=== PATIENT | male | born 1965 | race Hispanic/Latino ===

== ENCOUNTER 2017-09-22 08:58 | Emergency (ER) | payer SELFPAY ==
[2017-09-22] MEDS ORDERED: DUONEB *Not for PRN Use IH ONE ×2 (09:09→14:47)
[2017-09-22] MEDS ORDERED: PULMICORT IH ONE (09:31)
--- NOTE | 2017-09-22 10:28 | XRay Report ---
CHEST TWO VIEWS: 09/22/17 08:58:00 CLINICAL: Shortness of breath. COMPARISON: 08/29/17 FINDINGS: Normal heart and pulmonary vasculature. The lungs are hyperexpanded and hyperlucent. No airspace disease or pleural effusion. Degenerative changes in the spine. IMPRESSION: COPD and no significant change compared to the prior exam.No CHF or pneumonia.
[2017-09-22] MEDS ORDERED: MAGNESIUM SULFATE 2GM/50ML 2 GM/50 ML BAG IV ONE (11:25)
[2017-09-22] MEDS ORDERED: PROVENTIL IH ONE (11:25)
[2017-09-22] MEDS ORDERED: ATROVENT IH ONE (11:25)
[2017-09-22] MEDS ORDERED: TORADOL IV ONE (11:26)
--- NOTE | 2017-09-22 11:28 | Emergency Department Report ---
ED General Adult HPI - General Chief complaint: Dyspnea/Respdistress Stated complaint: BRONCHITIS Time Seen by Provider: 09/22/17 11:14 Source: patient, RN notes reviewed, old records reviewed Mode of arrival: Ambulatory Limitations: No Limitations - History of Present Illness Initial comments: This is a 52-year-old male, the patient is previously evaluated by this provider. Patient has a past medical history of heart disease with stents, possible history of COPD, patient's does not recall any recent pulmonary function testing. Patient had a CT scan of the chest performed on August 29, which demonstrated "bilateral bronchiectasis with areas of reticular nodular opacity bilaterally, differential diagnoses include infective bronchiolitis, including PAYAM, tuberculosis or fungal pneumonia, bronchiolitis, or connective tissue disorders." The patient presents today with complaint of cough, wheezing, shortness of breath and mucus production. He reports that when he was seen at the end of the month last month, "I got patched up and felt better." Patient presents to the ER today with a complaint of cough, wheezing, shortness of breath. He reports his symptoms got better for a few days after being seen at the end of last month, and they have worsened. There is no leg pain. There is no leg swelling. No recent trips. No recent surgeries. Positive chest tightness with coughing. Symptoms worse with physical exertion, they decrease with rest, symptoms do not radiate anywhere. -: Gradual, days(s) Consistency: intermittent Improves with: movement, rest Associated Symptoms: cough, loss of appetite, malaise, shortness of breath, weakness - Related Data Home Medications Medication Instructions Recorded Confirmed Last Taken Albuterol Sulfate 1.25 mg IH BID PRN 08/29/17 08/29/17 Unknown Amitriptyline [Elavil] 25 mg PO QPM 08/29/17 08/29/17 Unknown Aspirin [Adult Low Dose Aspirin EC] 81 mg PO DAILY 08/29/17 08/29/17 Unknown Carvedilol [Coreg] 6.25 mg PO BID 08/29/17 08/29/17 Unknown Fluticasone/Vilanterol [Breo 1 each IH DAILY 08/29/17 08/29/17 Unknown Ellipta 100-25 Mcg INH] Gabapentin [Neurontin] 300 mg PO BID 08/29/17 08/29/17 08/29/17 HYDROcodone/APAP 5-325 [[place] 1 each PO Q8H PRN 08/29/17 08/29/17 08/29/17 5/325] Nitroglycerin [Nitrostat] 0.4 mg SL Q5M PRN MDD 1.2mg 08/29/17 08/29/17 Unknown Simvastatin [Zocor] 40 mg PO DAILY 08/29/17 08/29/17 Unknown Previous Rx's Medication Instructions Recorded Last Taken Type Carvedilol [Coreg] 6.25 mg PO BID #60 tablet 08/29/17 Unknown Rx Ciprofloxacin HCl [Ciprofloxacin 750 mg PO BID #20 tablet 08/29/17 Unknown Rx TAB] Clopidogrel [Plavix] 75 mg PO QDAY #30 tablet 08/29/17 Unknown Rx Gabapentin [Neurontin] 300 mg PO Q8HR #90 capsule 08/29/17 Unknown Rx Nebulizer and Compressor 1 each MC DAILY #1 each 08/29/17 Unknown Rx [Sootheneb Compressor Nebulizer] Nitroglycerin 0.4 mg SL Q10MIN PRN #4 tab.subl 08/29/17 Unknown Rx Pantoprazole [Protonix] 40 mg PO QDAY #30 tablet 08/29/17 Unknown Rx Simvastatin [Zocor TAB] 40 mg PO QHS #30 tablet 08/29/17 Unknown Rx Albuterol Sulfate [Albuterol 0.63% 0.63 mg IH TID PRN #1 box 09/22/17 Unknown Rx NEBS] Benzonatate [Tessalon Perles] 100 mg PO Q8HR #30 capsule 09/22/17 Unknown Rx Budesonide [Pulmicort] 0.5 mg IH Q12HR #1 box 09/22/17 Unknown Rx Ipratropium [Atrovent NEB] 0.5 mg IH Q8HRT #1 box 09/22/17 Unknown Rx Prednisone [predniSONE 10 mg 10 mg PO .TAPER #1 tab.ds.pk 09/22/17 Unknown Rx (6-Day Pack, 21 Tabs)] Allergies Allergy/AdvReac Type Severity Reaction Status Date / Time Penicillins Allergy Hives Verified 08/29/17 12:26 ED Review of Systems ROS: Stated complaint: BRONCHITIS Other details as noted in HPI Constitutional: malaise, weakness Eyes: denies: eye discharge ENT: congestion Respiratory: cough, shortness of breath, SOB with exertion, wheezing Cardiovascular: dyspnea on exertion Gastrointestinal: denies: vomiting Musculoskeletal: as per HPI Skin: as per HPI Neurological: as per HPI, weakness Psychiatric: anxiety ED Past Medical Hx - Past Medical History Hx Hypertension: Yes (10 stents) Hx Heart Attack/AMI: Yes Hx Congestive Heart Failure: No Hx Diabetes: No Hx Deep Vein Thrombosis: No Hx Pulmonary Embolism: No Hx Asthma: No Hx COPD: Yes Hx Tuberculosis: No Hx HIV: No Additional medical history: CAD, chronic pain (nerve damage) - Surgical History Hx Coronary Stent: Yes (x10) Hx Pacemaker: No Hx Internal Defibrillator: No Additional Surgical History: Hemorrhoidectomy x 2 - Social History Smoking Status: Current Every Day Smoker Substance Use Type: None - Medications Home Medications: Home Medications Medication Instructions Recorded Confirmed Last Taken Type Albuterol Sulfate 1.25 mg IH BID PRN 08/29/17 08/29/17 Unknown History Amitriptyline [Elavil] 25 mg PO QPM 08/29/17 08/29/17 Unknown History Aspirin [Adult Low Dose Aspirin EC] 81 mg PO DAILY 08/29/17 08/29/17 Unknown History Carvedilol [Coreg] 6.25 mg PO BID 08/29/17 08/29/17 Unknown History Carvedilol [Coreg] 6.25 mg PO BID #60 tablet 08/29/17 Unknown Rx Ciprofloxacin HCl [Ciprofloxacin 750 mg PO BID #20 tablet 08/29/17 Unknown Rx TAB] Clopidogrel [Plavix] 75 mg PO QDAY #30 tablet 08/29/17 Unknown Rx Fluticasone/Vilanterol [Breo 1 each IH DAILY 08/29/17 08/29/17 Unknown History Ellipta 100-25 Mcg INH] Gabapentin [Neurontin] 300 mg PO BID 08/29/17 08/29/17 08/29/17 History Gabapentin [Neurontin] 300 mg PO Q8HR #90 capsule 08/29/17 Unknown Rx HYDROcodone/APAP 5-325 [[place] 1 each PO Q8H PRN 08/29/17 08/29/17 08/29/17 History 5/325] Nebulizer and Compressor 1 each MC DAILY #1 each 08/29/17 Unknown Rx [Sootheneb Compressor Nebulizer] Nitroglycerin 0.4 mg SL Q10MIN PRN #4 tab.subl 08/29/17 Unknown Rx Nitroglycerin [Nitrostat] 0.4 mg SL Q5M PRN MDD 1.2mg 08/29/17 08/29/17 Unknown History Pantoprazole [Protonix] 40 mg PO QDAY #30 tablet 08/29/17 Unknown Rx Simvastatin [Zocor TAB] 40 mg PO QHS #30 tablet 08/29/17 Unknown Rx Simvastatin [Zocor] 40 mg PO DAILY 08/29/17 08/29/17 Unknown History Albuterol Sulfate [Albuterol 0.63% 0.63 mg IH TID PRN #1 box 09/22/17 Unknown Rx NEBS] Benzonatate [Tessalon Perles] 100 mg PO Q8HR #30 capsule 09/22/17 Unknown Rx Budesonide [Pulmicort] 0.5 mg IH Q12HR #1 box 09/22/17 Unknown Rx Ipratropium [Atrovent NEB] 0.5 mg IH Q8HRT #1 box 09/22/17 Unknown Rx Prednisone [predniSONE 10 mg 10 mg PO .TAPER #1 tab.ds.pk 09/22/17 Unknown Rx (6-Day Pack, 21 Tabs)] ED Physical Exam - General Limitations: Physical Limitation General appearance: alert, in distress - Head Head exam: Present: atraumatic, normocephalic - Eye Eye exam: Present: normal appearance, EOMI. Absent: nystagmus - ENT ENT exam: Present: normal exam, normal orophraynx, mucous membranes moist, normal external ear exam - Neck Neck exam: Present: normal inspection, full ROM - Respiratory Respiratory exam: Present: wheezes, rhonchi - Cardiovascular Cardiovascular Exam: Present: regular rate, normal rhythm, normal heart sounds. Absent: tachycardia, systolic murmur, diastolic murmur, rubs, gallop - GI/Abdominal GI/Abdominal exam: Present: soft, normal bowel sounds. Absent: distended, tenderness, guarding, rebound, rigid, pulsatile mass - Rectal Rectal exam: Present: deferred - Extremities Exam Extremities exam: Present: normal inspection, full ROM, normal capillary refill. Absent: pedal edema, joint swelling, calf tenderness - Back Exam Back exam: Present: normal inspection, full ROM. Absent: tenderness, CVA tenderness (R), paraspinal tenderness, vertebral tenderness - Neurological Exam Neurological exam: Present: alert, oriented X3, normal gait, other (Extraocular movements intact. Tongue midline. No facial droop. Facial sensation intact to light touch in the V1, V2, V3 distribution bilaterally. 5 and 5 strength in 4 extremities.. Sensation is intact to light touch in 4 extremities.). Absent : motor sensory deficit - Psychiatric Psychiatric exam: Present: anxious - Skin Skin exam: Present: warm, dry, intact, normal color. Absent: rash ED Course Vital Signs 09/22/17 09/22/17 09/22/17 09:03 09:24 09:43 Temperature 98 F Pulse Rate 91 H Pulse Rate [ 79 Anterior Bilateral Throughout] Pulse Rate [ 88 Posterior Bilateral Throughout] Respiratory 22 Rate Respiratory 20 Rate [Anterior Bilateral Throughout] Respiratory 22 Rate [Posterior Bilateral Throughout] Blood Pressure 129/89 Blood Pressure [Right] O2 Sat by Pulse 95 Oximetry 09/22/17 09/22/17 09/22/17 11:26 11:51 12:11 Temperature Pulse Rate 78 81 Pulse Rate [ 69 Anterior Bilateral Throughout] Pulse Rate [ Posterior Bilateral Throughout] Respiratory 18 18 Rate Respiratory 20 Rate [Anterior Bilateral Throughout] Respiratory Rate [Posterior Bilateral Throughout] Blood Pressure Blood Pressure 137/96 140/98 [Right] O2 Sat by Pulse 97 97 Oximetry 09/22/17 09/22/17 12:55 13:38 Temperature Pulse Rate 88 Pulse Rate [ 72 Anterior Bilateral Throughout] Pulse Rate [ Posterior Bilateral Throughout] Respiratory 16 Rate Respiratory 20 Rate [Anterior Bilateral Throughout] Respiratory Rate [Posterior Bilateral Throughout] Blood Pressure Blood Pressure 140/98 [Right] O2 Sat by Pulse 92 Oximetry - Reevaluation(s) Reevaluation #1: 09/22/17 12:06 Differential diagnosis, including but not limited to: COPD, bronchitis, tuberculosis, undiagnosed immune insufficiency Assessment and plan: 52-year-old male with recurrent cough, wheezing, shortness of breath, headache CT scan with numerous nonspecific findings within the past month, has not followed up with a family educator or infectious disease specialist , given cough, wheezing and shortness of breath, CT scan of the chest within the past month demonstrated tree in both opacities within the posterior right lower lobe, He will be treated empirically with albuterol, Atrovent, steroids and magnesium. We will discuss with pulmonology rodent control worker. Patient allergic to penicillins. He covered empirically with antibiotic after discussion with pulmonology 09/22/17 12:22 Reevaluation #2: 09/22/17 12:22 The case, laboratory studies, CT scan have all been presented to the family educator on-call, Dr. Morel. He recommends Levaquin, for 10 days, a steroid burst, and recommends the patient should contact his office to follow up as an outpatient. Given location of abnormal findings on CT scan, very unlikely to be tuberculosis. Patient can have an outpatient workup for this. Patient's treatment is still pending at this time. Reevaluation #3: 09/22/17 14:16 The patient is still wheezing. When ambulated, he becomes very short of breath and desaturates to 92%, and states "I feel very weak." Patient will be admitted for COPD exacerbation. Case presents to the Hospital physician, Dr. Ross. ED Medical Decision Making - Lab Data Result diagrams: 09/22/17 11:31 09/22/17 11:31 Vital Signs 09/22/17 09/22/17 09/22/17 09:03 09:24 09:43 Temperature 98 F Pulse Rate 91 H Pulse Rate [ 79 Anterior Bilateral Throughout] Pulse Rate [ 88 Posterior Bilateral Throughout] Respiratory 22 Rate Respiratory 20 Rate [Anterior Bilateral Throughout] Respiratory 22 Rate [Posterior Bilateral Throughout] Blood Pressure 129/89 Blood Pressure [Right] O2 Sat by Pulse 95 Oximetry 09/22/17 09/22/17 11:26 11:51 Temperature Pulse Rate 78 Pulse Rate [ 69 Anterior Bilateral Throughout] Pulse Rate [ Posterior Bilateral Throughout] Respiratory 18 Rate Respiratory 20 Rate [Anterior Bilateral Throughout] Respiratory Rate [Posterior Bilateral Throughout] Blood Pressure Blood Pressure 137/96 [Right] O2 Sat by Pulse 97 Oximetry Lab Results 09/22/17 09/22/17 09/22/17 Range/Units 11:31 11:31 11:52 WBC 7.0 (4.5-11.0) K/mm3 RBC 4.57 (3.65-5.03) M/mm3 Hgb 15.0 (11.8-15.2) gm/dl Hct 43.3 (35.5-45.6) % MCV 95 H (84-94) fl MCH 33 H (28-32) pg MCHC 35 H (32-34) % RDW 13.0 L (13.2-15.2) % Plt Count 300 (140-440) K/mm3 Lymph % (Auto) 13.3 L (13.4-35.0) % [place] % (Auto) 7.3 (0.0-7.3) % Eos % (Auto) 1.5 (0.0-4.3) % Baso % (Auto) 0.9 (0.0-1.8) % Lymph # 0.9 L (1.2-5.4) K/mm3 [place] # 0.5 (0.0-0.8) K/mm3 Eos # 0.1 (0.0-0.4) K/mm3 Baso # 0.1 (0.0-0.1) K/mm3 Seg Neutrophils % 77.0 H (40.0-70.0) % Seg Neutrophils # 5.4 (1.8-7.7) K/mm3 POC ABG pH 7.446 (7.35-7.45) POC ABG pCO2 33.2 L (35-45) POC ABG pO2 75 L (80-105) POC ABG HCO3 22.9 POC ABG Total CO2 24 POC ABG O2 Sat 96 POC ABG Base Excess -1 FiO2 21 % Lactic Acid 1.40 (0.7-2.0) mmol/L - Radiology Data Radiology results: report reviewed, image reviewed X-ray of the chest suggest COPD, no acute findings noted Critical care attestation.: If time is entered above; I have spent that time in minutes in the direct care of this critically ill patient, excluding procedure time. ED Disposition Clinical Impression: COPD (chronic obstructive pulmonary disease) Disposition: OP ADMIT IP TO THIS HOSP Is pt being admited?: Yes Condition: Good Instructions: Chronic Obstructive Pulmonary Disease (ED) Prescriptions: Albuterol Sulfate [Albuterol 0.63% NEBS] 0.63 mg IH TID PRN #1 box PRN Reason: Wheezing Benzonatate [Tessalon Perles] 100 mg PO Q8HR #30 capsule Budesonide [Pulmicort] 0.5 mg IH Q12HR #1 box Ipratropium [Atrovent NEB] 0.5 mg IH Q8HRT #1 box Prednisone [predniSONE 10 mg (6-Day Pack, 21 Tabs)] 10 mg PO .TAPER #1 tab.ds.pk Referrals: PRIMARY CARE, [Primary Care Provider] - 3-5 Days
[2017-09-22 12:01] LABS: ISTAT Base Excess -1; ISTAT DEVICE 0; ISTAT HCO3 22.9; ISTAT PCO2 33.2 (35-45); ISTAT PH 7.446 (7.35-7.45); ISTAT PO2 75 (80-105); ISTAT SO2 96; ISTAT TCO2 24
[2017-09-22 12:06] LABS: Basophils % (Auto) 0.9 % (0.0-1.8); Eosinophils % (Auto) 1.5 % (0.0-4.3); Hematocrit 43.3 % (35.5-45.6); Mean Corpuscular HGB Conc 35 % (32-34); Mean Corpuscular Hemoglobin 33 pg (28-32); Mean Corpuscular Volume 95 fl (84-94); Platelet Count 300 K/mm3 (140-440); Red Blood Count 4.57 M/mm3 (3.65-5.03)
[2017-09-22 12:11] LABS: INR 0.93 (0.87-1.13)
[2017-09-22 12:12] LABS: Partial Thromboplastin Time 33.9 Sec. (24.2-36.6)
[2017-09-22 12:17] LABS: Anion Gap 19 mmol/L; BUN/Creatinine Ratio 20; Blood Urea Nitrogen 10 mg/dL (9-20); Calcium 9.4 mg/dL (8.4-10.2); Carbon Dioxide 26 mmol/L (22-30); Chloride 99.6 mmol/L (98-107); Glucose 91 mg/dL (75-100); Potassium 4.2 mmol/L (3.6-5.0); Sodium 140 mmol/L (137-145)
[2017-09-22] MEDS ORDERED: LEVAQUIN 750MG/150ML 750 MG/150 ML BAG IV ONE (13:43)
[2017-09-22] MEDS ORDERED: TESSALON PERLES PO ONE (14:45)
[2017-09-22] MEDS ORDERED: HYDROMET PO ONE (14:46)
--- NOTE | 2017-09-22 14:47 | History and Physical Report ---
History of Present Illness Chief complaint: Latia been coughing History of present illness: 52 YO Male with Bronchitis, Bronchiectasis, CAD S/P Stent placement, COPD, Nicotine Dependence presents to ED for evaluation. Pt states that he has experienced coughing for the past week with worsening symptoms over the past 2 days. Pt denies fever, chills, CP, Palpitations, NVD, Syncope, prolonged immobility/travel, individual/family history of DVT/PE, unintentional weight loss, night sweats. Pt seen and evaluated in ED with same symptoms and was instructed to f/u with pulmonology for further care. Pt seen and evaluated in ED. Pt found to have resting and ambulating pulse oximetry between 92%-97% on room air. Pt treated with supportive care. Pt medically optimized and discharged home. Pt counseled regarding scheduled use of nebulizer therapy. Pt acknowledges understanding instructions. Pt counseled regarding smoking cessation, and avoidance of respiratory triggers. Patient care plan discussed with pulmonary service who recommend outpatient f/u. Past History Past Medical History: CAD, COPD, other (Bronchitis, Bronchiectasis) Past Surgical History: Other (stent, hemorrhoid surgery) Social history: , smoking. denies: alcohol abuse Family history: hypertension Medications and Allergies Allergies Allergy/AdvReac Type Severity Reaction Status Date / Time Penicillins Allergy Hives Verified 08/29/17 12:26 Home Medications Medication Instructions Recorded Confirmed Last Taken Type Albuterol Sulfate 1.25 mg IH BID PRN 08/29/17 08/29/17 Unknown History Amitriptyline [Elavil] 25 mg PO QPM 08/29/17 08/29/17 Unknown History Aspirin [Adult Low Dose Aspirin EC] 81 mg PO DAILY 08/29/17 08/29/17 Unknown History Carvedilol [Coreg] 6.25 mg PO BID 08/29/17 08/29/17 Unknown History Carvedilol [Coreg] 6.25 mg PO BID #60 tablet 08/29/17 Unknown Rx Clopidogrel [Plavix] 75 mg PO QDAY #30 tablet 08/29/17 Unknown Rx Fluticasone/Vilanterol [Breo 1 each IH DAILY 08/29/17 08/29/17 Unknown History Ellipta 100-25 Mcg INH] Gabapentin [Neurontin] 300 mg PO BID 08/29/17 08/29/17 08/29/17 History Gabapentin [Neurontin] 300 mg PO Q8HR #90 capsule 08/29/17 Unknown Rx HYDROcodone/APAP 5-325 [[place] 1 each PO Q8H PRN 08/29/17 08/29/17 08/29/17 History 5/325] Nebulizer and Compressor 1 each MC DAILY #1 each 08/29/17 Unknown Rx [Sootheneb Compressor Nebulizer] Nitroglycerin 0.4 mg SL Q10MIN PRN #4 tab.subl 08/29/17 Unknown Rx Nitroglycerin [Nitrostat] 0.4 mg SL Q5M PRN MDD 1.2mg 08/29/17 08/29/17 Unknown History Pantoprazole [Protonix] 40 mg PO QDAY #30 tablet 08/29/17 Unknown Rx Simvastatin [Zocor TAB] 40 mg PO QHS #30 tablet 08/29/17 Unknown Rx Simvastatin [Zocor] 40 mg PO DAILY 08/29/17 08/29/17 Unknown History Albuterol Sulfate [Albuterol 0.63% 0.63 mg IH TID PRN #1 box 09/22/17 Unknown Rx NEBS] Benzonatate [Tessalon Perles] 100 mg PO Q8HR #30 capsule 09/22/17 Unknown Rx Budesonide [Pulmicort] 0.5 mg IH Q12HR #1 box 09/22/17 Unknown Rx Ciprofloxacin HCl [Ciprofloxacin 750 mg PO BID #20 tablet 09/22/17 Unknown Rx TAB] Ipratropium [Atrovent NEB] 0.5 mg IH Q8HRT #1 box 09/22/17 Unknown Rx Prednisone [predniSONE 10 mg 10 mg PO .TAPER #1 tab.ds.pk 09/22/17 Unknown Rx (6-Day Pack, 21 Tabs)] Active Meds: Active Medications Benzonatate (Tessalon Perles) 100 mg PO ONCE ONE Stop: 09/22/17 14:46 Hydrocodone Bit/Homatropine Methylb (Hydromet) 10 ml PO ONCE ONE Stop: 09/22/17 14:47 Levofloxacin/Dextrose (Levaquin 750mg/150ml) 750 mg in 150 mls @ 100 mls/hr IV ONCE ONE Stop: 09/22/17 15:12 Last Admin: 09/22/17 14:13 Dose: 100 mls/hr Review of Systems Constitutional: no weight loss, no weight gain, no fever, no chills, no sweats Cardiovascular: no chest pain, no orthopnea, no palpitations, no rapid/ irregular heart beat, no edema, no syncope Respiratory: cough, cough with sputum, no excessive sputum, no hemoptysis, no shortness of breath, no dyspnea on exertion Gastrointestinal: no abdominal pain, no nausea, no vomiting, no diarrhea, no constipation Genitourinary Male: no hematuria, no flank pain, no discharge, no urinary frequency, no urinary hesitancy, no nocturia Rectal: no pain, no incontinence, no bleeding Musculoskeletal: no neck pain, no shooting arm pain, no arm numbness/tingling, no low back pain, no shooting leg pain Integumentary: no rash, no pruritis, no redness, no sores, no wounds, no jaundice Neurological: no transient paralysis, no paralysis, no weakness, no parathesias , no numbness, no tingling, no seizures, no syncope, no tremors Psychiatric: no anxiety, no memory loss, no change in sleep habits, no sleep disturbances, no insomnia, no hypersomnia, no change in appetite, no change in libido Endocrine: no cold intolerance, no heat intolerance, no polyphagia, no excessive thirst, no polydipsia, no polyuria, no nocturia, no excessive sweating , no flushing Hematologic/Lymphatic: no easy bruising, no easy bleeding Allergic/Immunologic: no urticaria, no allergic rhinitis, no wheezing Exam - Constitutional Vitals: Temp Pulse Resp BP Pulse Ox 98 F 88 16 140/98 92 09/22/17 09:03 09/22/17 13:38 09/22/17 13:38 09/22/17 13:38 09/22/17 13:38 General appearance: Present: no acute distress, well-nourished - EENT Eyes: Present: PERRL ENT: hearing intact, clear oral mucosa - Neck Neck: Present: supple, normal ROM - Respiratory Respiratory effort: normal Respiratory: bilateral: CTA - Cardiovascular Heart Sounds: Present: S1 & S2. Absent: rub, click - Extremities Extremities: pulses symmetrical, No edema Peripheral Pulses: within normal limits - Abdominal General gastrointestinal: Present: soft, non-tender, non-distended, normal bowel sounds Male genitourinary: Present: normal - Integumentary Integumentary: Present: clear, warm, dry - Musculoskeletal Musculoskeletal: gait normal, strength equal bilaterally - Psychiatric Psychiatric: appropriate mood/affect, intact judgment & insight - Neurologic Neurologic: CNII-XII intact, moves all extremities Results - Labs CBC & Chem 7: 09/22/17 11:31 09/22/17 11:31 Labs: Abnormal lab results 09/22/17 09/22/17 09/22/17 Range/Units 11:31 11:31 11:52 MCV 95 H (84-94) fl MCH 33 H (28-32) pg MCHC 35 H (32-34) % RDW 13.0 L (13.2-15.2) % Lymph % (Auto) 13.3 L (13.4-35.0) % Lymph # 0.9 L (1.2-5.4) K/mm3 Seg Neutrophils % 77.0 H (40.0-70.0) % POC ABG pCO2 33.2 L (35-45) POC ABG pO2 75 L (80-105) Creatinine 0.5 L (0.8-1.5) mg/dL Assessment and Plan - Patient Problems (1) COPD (chronic obstructive pulmonary disease) Current Visit: Yes Status: Chronic Plan to address problem: Steroid taper, oral antibiotics, outpatient pulmonary F/U. (2) Bronchitis Current Visit: No Status: Acute Plan to address problem: Tessalon perles, steroids, nebulizer therapy, outpatient pulmonary f/u for further care and evaluation. (3) Cough Current Visit: No Status: Acute Plan to address problem: irais kramer,
[2017-09-22] MEDS ORDERED: NORCO PO ONE (15:39)
[2017-09-22 18:42] VITALS: BP 124/86
== END 2017-09-22 18:30 | disposition admitted as inpatient to this hospital (09) ==
LOC: ED 08:58
DX: J44.9 Chronic obstructive pulmonary disease, unspecified (principal); I10 Essential (primary) hypertension; I25.2 Old myocardial infarction; I25.10 Atherosclerotic heart disease of native coronary artery without angina pectoris; G89.29 Other chronic pain; F17.200 Nicotine dependence, unspecified, uncomplicated; Z90.89 Acquired absence of other organs; Z88.0 Allergy status to penicillin; Z79.82 Long term (current) use of aspirin
CPT/HCPCS: 36415; 71020; 80048; 82140; 82803; 83735; 83880; 84484; 85025; 85379; 85610; 85730; 93005; 93010; 94640; 94644; 96365; 96367; 96375; 99285; J1885; J1956; J2930; J3475